=== PATIENT | male | born 1940 | race Caucasian/White ===

== ENCOUNTER → 2016-12-13 | Outpatient (CLI) | payer MEDICARE ==
[2016-12-13 08:52] LABS: CH 30.3; CHCM 34.4; HCT 42.3 % (39.0-53.0); HDW 2.53; HGB 14.1 gm/dL (13.0-17.5); MCH 29.4 pg (25.0-35.0); MCHC 33.2 g/dL (31.0-37.0); MCV 88.5 fL (80.0-100.0); Mean Platelet Volume 7.2; RBC 4.79 m/uL (4.30-5.90); RDW 13.5 % (11.5-15.5); WBC 6.2 k/uL (3.8-10.6)
[2016-12-13 09:05] LABS: Anion Gap 9 mmol/L; Blood Urea Nitrogen 14 mg/dL (9-20); Calcium 9.8 mg/dL (8.4-10.2); Carbon Dioxide 29 mmol/L (22-30); Chloride 103 mmol/L (98-107); Glucose 89 mg/dL (74-99); Non-African American GFR(MDRD) 59 (>60 ml/min/1.73 sqM); Potassium 4.6 mmol/L (3.5-5.1); Sodium 141 mmol/L (137-145)
== END | disposition home or self-care (01) ==
LOC: LABWHC1 08:11
PROVIDERS: ATTEND Internal Medicine Clinical Cardiac Electrophysiology
DX: I42.8 Other cardiomyopathies (principal); I10 Essential (primary) hypertension
CPT/HCPCS: 36415; 80048; 85027

== ENCOUNTER → 2016-12-20 | Day surgery (SDC) | payer MEDICARE ==
[2016-12-14 13:28] VITALS: BMI 25.8
[~2016-12-20] MED LIST: LIDOCAINE 1% INJ 10MG/ML (20 ML MDV) ONE; PROPOFOL 10 MG/ML 20 ML VIAL IV ONE; SODIUM CHLORIDE 0.9% 1,000 ML IV SCH
[2016-12-20 07:39] VITALS: RESP 16
[2016-12-20 08:30] VITALS: PULSE 54; TEMP 97.8
--- NOTE | 2016-12-20 08:56 | CE ---
CARDIAC ELECTROPHYSIOLOGY REPORT A 76-year-old male patient with known cardiomyopathy, status post Bi-V ICD who is brought in for DFT testing under anesthesia. The patient has a [employer] medical Bi-V ICD which was interrogated. The patient had complained that he had received a shock last week, however, interrogation revealed absence of any VF or tachycardia episodes. The ICD was interrogated. Atrial pacing threshold 0.5 V at 0.5 milliseconds. P waves 2.3 mV. Pacing impedance 440 ohms. RV threshold 0.5 V at 0.5 milliseconds. R-waves 11.7 mV and pacing impedance 610 ohms. LV threshold 1.5 V at 1 millisecond (M3-RV coil). Pacing impedance 980 ohms. High-voltage impedance 73 ohms. DFT testing was performed. A DC shock was used to induce ventricular fibrillation. This was adequately and appropriately detected at lead sensitivity and successfully internally defibrillated with 20 joule shock. A 10 joule shock was not successful. The total charge time was 4.1 seconds and shock impedance 73 ohms. No post shock noise. The device was then reprogrammed accordingly. Madit-RIT programming was reprogrammed. Base pacing rate of 50 beats per minute. Short AV delay. Bi-V pacing was already on. First cardioversion at 20 joules was defibrillation at 30 joules. RESULTS: 1. ICD interrogation with reprogramming revealed absence of any tachy episodes. The patient had complained of receiving a shock last week, but there was no tachyarrhythmia episode nor was any therapy delivered. 2. Increase in DFT. In 2014, his DFT was 10 joules. This time a 10 joule shock was unsuccessful. Reprogramming was performed accordingly and Madit-RIT was programed. PLAN: Follow up with Dr. Bullard in the next few weeks. MMODL / IJN: [id number] /
[2016-12-20 08:59] VITALS: BP 150/74
== END ==
LOC: CATHEP 06:26
PROVIDERS: ATTEND Internal Medicine Clinical Cardiac Electrophysiology
DX: Z45.02 Encounter for adjustment and management of automatic implantable cardiac defibrillator (principal); I42.8 Other cardiomyopathies; Z95.810 Presence of automatic (implantable) cardiac defibrillator; I10 Essential (primary) hypertension; E78.5 Hyperlipidemia, unspecified; I44.1 Atrioventricular block, second degree; I44.7 Left bundle-branch block, unspecified; I25.119 Atherosclerotic heart disease of native coronary artery with unspecified angina pectoris; E07.9 Disorder of thyroid, unspecified; K21.9 Gastro-esophageal reflux disease without esophagitis; H91.90 Unspecified hearing loss, unspecified ear; Z87.442 Personal history of urinary calculi; Z87.891 Personal history of nicotine dependence; Z79.899 Other long term (current) drug therapy; Z79.1 Long term (current) use of non-steroidal anti-inflammatories (NSAID); Z79.82 Long term (current) use of aspirin
CPT/HCPCS: 93642; J2001; J2704

== ENCOUNTER 2023-02-17 06:43 | Emergency (ER) | payer MEDICARE ==
[2023-02-17 06:47] VITALS: RESP 18; TEMP 98.1
--- NOTE | 2023-02-17 07:27 | CT ---
EXAMINATION TYPE: CT chest abdomen wo con CT DLP: 407.3 mGycm, Automated exposure control for dose reduction was used. DATE OF EXAM: 02/17/2023 7:17 AM COMPARISON: Chest radiograph 12/23/2014 CLINICAL INDICATION:Male, 82 years old with history of Esophageal food impaction; PHH, food impaction Technique: Multiple axial images of the chest and abdomen were obtained of the administration of intr avenous or oral contrast. Two-dimensional coronal and sagittal reconstructions were obtained. Findings: CHEST: Evaluation is limited due to lack of intravenous and oral contrast. LUNGS/ PLEURA: Mild centrilobular emphysematous changes. No focal consolidation, pleural effusion, or pneumothorax. Elevation of the right hemidiaphragm. AIRWAY: Patent and unremarkable.. HEART: Cardiomegaly is demonstrated. No pericardial effusion. Cardiac pacemaking leads. Aortic valvul ar calcifications. Mild coronary artery calcifications. MEDIASTINUM: No gross evidence of adenopathy. VASCULATURE: No aortic aneurysm. Left chest wall cardiac pacemaking device. Atherosclerotic calcific ation of the aorta and its branches. MUSCULOSKELETAL: No acute osseous abnormalities. SOFT TISSUES/LYMPH NODES: Unremarkable. LOWER NECK: No significant findings. ABDOMEN: ABDOMEN LIVER: Unremarkable GALLBLADDER AND BILE DUCTS: Unremarkable. PANCREAS: Unremarkable. SPLEEN: Unremarkable. ADRENAL GLANDS: Unremarkable. KIDNEYS AND URETERS: No evidence of hydronephrosis or renal calculus. STOMACH AND BOWEL: Fluid-filled mildly dilated esophagus to the mid esophageal level. Small hiatal he rnia. No significant colonic distention. Colonic diverticulosis without evidence for acute diverticul itis. The visualized appendix is within normal limits. No evidence of bowel obstruction. PERITONEUM: No evidence of pneumoperitoneum or free fluid. VASCULATURE: Mild atherosclerotic calcifications are present throughout the abdominal aorta and its b ranches. No abdominal aortic aneurysm. MUSCULOSKELETAL: No acute osseous abnormalities. Heterogenous sclerotic appearance of the left iliac bone. LYMPH NODES: No gross evidence for lymphadenopathy. SOFT TISSUE/ABDOMINAL WALL: Unremarkable IMPRESSION: 1. Mildly distended fluid-filled esophagus to the mid level with small hiatal hernia. Direct visuali zation is recommended. 2. Atherosclerotic appearance of the left iliac bone. This may represent Paget's disease. Consider f urther evaluation of the medicine bone scan. 3. Colonic diverticulosis without evidence for acute diverticulitis. 4. Mild COPD changes.
[2023-02-17] MEDS ORDERED: GLUCAGON 1 MG/ML VIAL IVP STA ×3 (07:32→09:24)
--- NOTE | 2023-02-17 07:49 | ED ---
ENT HPI - General Chief complaint: ENT Stated complaint: Acid Reflux, Unable to swallow Time Seen by Provider: 02/17/23 06:49 Source: patient, RN notes reviewed Mode of arrival: ambulatory Limitations: no limitations - History of Present Illness Initial comments: This is an 82-year-old male who presents to the emergency department for concerns of getting a meatball stuck in his throat. States that he had a meatball for dinner last night, and since then he has not been able to swallow anything, including his own saliva. Whenever he tries to swallow something, he throws it back up. He had a similar issue a few years ago and required the food to be removed with an endoscopy. He does report some spasms in his abdomen associated with this. MD complaint: difficulty swallowing - Related Data Home Medications Medication Instructions Recorded Confirmed Multivitamin [Men's Multi-Vitamin] 1 tab PO DAILY 06/14/14 02/17/23 lisinopriL [Zestril] 2.5 mg PO HS 09/17/14 02/17/23 Aspirin [Adult Low Dose Aspirin EC] 81 mg PO DAILY 12/14/16 02/17/23 Atorvastatin [Lipitor] 20 mg PO HS 02/17/23 02/17/23 Cholecalciferol [Vitamin D3 (125 125 mcg PO DAILY 02/17/23 02/17/23 Mcg = 5000 Iu)] Cyanocobalamin (Vitamin B-12) 5,000 mcg PO DAILY 02/17/23 02/17/23 [Vitamin B-12] Fish Oil/Dha/Epa [Fish Oil 1,200 1 cap PO DAILY 02/17/23 02/17/23 mg Fish Oil] Adell 3-6-9 1 cap PO DAILY 02/17/23 02/17/23 Omeprazole [PriLOSEC] 20 mg PO DAILY 02/17/23 02/17/23 Spironolactone [Aldactone] 12.5 mg PO DAILY 02/17/23 02/17/23 Vit C/E/Zn/Coppr/Lutein/Zeaxan 1 cap PO BID 02/17/23 02/17/23 [Preservision Areds 2 Softgel] carvediloL [Coreg] 3.125 mg PO DAILY 02/17/23 02/17/23 carvediloL [Coreg] 6.25 mg PO HS 02/17/23 02/17/23 Previous Rx's Medication Instructions Recorded Nitroglycerin Sl Tabs [Nitrostat] 0.4 mg SUBLINGUAL Q5M PRN #25 tab 06/15/14 Allergies Allergy/AdvReac Type Severity Reaction Status Date / Time No Known Allergies Allergy Verified 02/17/23 09:35 Review of Systems ROS Statement: Those systems with pertinent positive or pertinent negative responses have been documented in the HPI. ROS Other: All systems not noted in ROS Statement are negative. Past Medical History Past Medical History: Coronary Artery Disease (CAD), Cancer, Chest Pain / Angina, GERD/Reflux, Hearing Disorder / Deafness Additional Past Medical History / Comment(s): BASAL CELL ON FACE. HX Kidney Stones. History of Any Multi-Drug Resistant Organisms: None Reported Past Surgical History: Orthopedic Surgery, Prostate Surgery Additional Past Surgical History / Comment(s): Kidney Stone Removal. KNEE SCOPE SURG. Past Anesthesia/Blood Transfusion Reactions: No Reported Reaction Past Psychological History: No Psychological Hx Reported Smoking Status: Never smoker Past Alcohol Use History: None Reported Past Drug Use History: None Reported - Past Family History Father Family Medical History: Dementia Additional Family Medical History / Comment(s): alzheimers; at 92 Mother Family Medical History: No Reported History Additional Family Medical History / Comment(s): arthritis General Exam Limitations: no limitations General appearance: alert, in no apparent distress Head exam: Present: atraumatic, normocephalic, normal inspection Respiratory exam: Present: normal lung sounds bilaterally. Absent: respiratory distress, wheezes, rales, rhonchi, stridor Cardiovascular Exam: Present: regular rate, normal rhythm, normal heart sounds. Absent: systolic murmur, diastolic murmur, rubs, gallop, clicks GI/Abdominal exam: Present: soft, normal bowel sounds. Absent: distended, tenderness, guarding, rebound, rigid Neurological exam: Present: alert, oriented X3, CN II-XII intact Psychiatric exam: Present: normal affect, normal mood Skin exam: Present: warm, dry, intact, normal color. Absent: rash Course Vital Signs 02/17/23 02/17/23 02/17/23 06:45 07:47 07:59 Temperature 98.1 F Pulse Rate 80 65 105 H Respiratory 18 18 18 Rate Blood Pressure 159/68 122/80 160/98 O2 Sat by Pulse 98 96 95 Oximetry 02/17/23 02/17/23 02/17/23 08:25 09:22 09:51 Temperature Pulse Rate 78 75 72 Respiratory 18 18 18 Rate Blood Pressure 137/78 140/75 122/69 O2 Sat by Pulse 97 98 95 Oximetry 02/17/23 02/17/23 10:38 11:21 Temperature Pulse Rate 75 71 Respiratory 18 18 Rate Blood Pressure 103/63 106/64 O2 Sat by Pulse 97 96 Oximetry Medical Decision Making - Medical Decision Making This is an 82-year-old male who presents to the emergency department for concerns of an esophageal food impaction. Was pt. sent in by a medical professional or institution? @ -No Did you speak to anyone other than the patient for history? @ -No Did you review nursing and triage notes? @ -Yes, and I agree, it is accurate with regards to the patient's symptoms. Were old charts reviewed? @ -No Differential Diagnosis? @ -Differential Dysphagia: Food impaction, GERD, mass, neurological issue, this is not meant to be an all- inclusive list. EKG interpreted by me (3pts min.)? @ -Not obtained X-rays interpreted by me (1pt min.)? @ -Not obtained CT interpreted by me (1pt min.)? @ -CT scan of the chest and abdomen obtained. My interpretation identifies a distended fluid filled esophagus. U/S interpreted by me (1pt. min.)? @ -Not obtained What testing was considered but not performed? (CT, X-rays, U/S, labs)? Why? @ -None What meds were considered but not given? Why? @ -None Did you discuss the management of the patient with other professionals? @ -No Did you reconcile home meds? @ -No Was smoking cessation discussed for >3mins.? @ -No Was critical care preformed (if so, how long)? @ -No Were there social determinants of health that impacted care today? How? (Homelessness, low income, unemployed, alcoholism, drug addiction, stokes sportation, low edu. Level, literacy, decrease access to med. care, long-term, rehab)? @ -No Was there de-escalation of care discussed even if they declined? (Discuss DNR or withdrawal of care, Hospice)? @ -No What co-morbidities impacted this encounter? (DM, HTN, Smoking, COPD, CAD, Cancer, CVA, Hep., AIDS, mental health diagnosis, sleep apnea, morbid obesity)? @ -None Was patient admitted / discharged? @ -Discharged. CT scan of the chest and abdomen obtained demonstrating a mildly distended fluid-filled esophagus to the mid-level with a small hiatal hernia. We did a trial of Valium and glucagon, followed by consumption of a carbonated beverage. He had no relief in symptoms. We repeated this regimen, and again the patient had no relief in symptoms and he was unable to tolerate oral intake. We then tried Glucagon with Reglan and Nitroglycerin followed by consumption of a carbonated beverage. The patient was able to successfully swallow fluids without throwing them back up. He was complaining of some problems with reflux and excess gas. He was then given famotidine and Maalox, which he felt was very beneficial. At that time he was tolerating oral intake without difficulty and felt stable for discharge home. Information for GI follow-up provided. He is advised to contact them for a follow-up appointment and further evaluation due to the possibility of an esophageal stricture. Advised he continue with [id number] reflux medication as needed and to make sure that he thoroughly chews his food in the future. Undiagnosed new problem with uncertain prognosis? @ -None Drug Therapy requiring intensive monitoring for toxicity (Heparin, Nitro, Insulin, Cardizem)? @ -None Were any procedures done? @ -None Diagnosis/symptom? @ -Esophageal food impaction Acute, or Chronic, or Acute on Chronic? @ -Acute Uncomplicated (without systemic symptoms) or Complicated (systemic symptoms)? @ -Complicated Side effects of treatment? @ -None Exacerbation, Progression, or Severe Exacerbation] @ -Not applicable Poses a threat to life or bodily function? @ -Not at this time, symptoms have resolved. Return precautions reviewed in depth, the patient is instructed to return to the emergency department with any new, worsening, or concerning symptoms. Patient verbalized understanding. This case was discussed in detail with the attending ED physician, Dr. Barrios. Presentation, findings, and treatment plan discussed in detail as well. - Radiology Data Radiology results: report reviewed, image reviewed Disposition Clinical Impression: Esophageal obstruction due to food impaction Disposition: HOME SELF-CARE Instructions (If sedation given, give patient instructions): Food Impaction (ED) Additional Instructions: Return to the emergency department with any new, worsening, or concerning symptoms. You can continue to take [id number] reflux medication as needed. Contact GI as listed below for a follow up appointment and reevaluation. Follow up with your primary care provider in 1-2 days. Is patient prescribed a controlled substance at d/c from ED?: No Referrals: Shukri Cochran MD [Primary Care Provider] - 1-2 days Sarah House MD [STAFF PHYSICIAN] - 1-2 days
[2023-02-17] MEDS ORDERED: NITROGLYCERIN SL TABS 0.4 MG TAB SUBLINGUAL STA (09:24)
[2023-02-17] MEDS ORDERED: METOCLOPRAMIDE 5 MG/ML 2 ML VIAL IVP STA (09:24)
[2023-02-17] MEDS ORDERED: FAMOTIDINE 20 MG/2 ML VIAL IV STA (10:38)
[2023-02-17] MEDS ORDERED: MAG HYDROX/AL HYDROX/SIMETH 30 ML CUP PO PRN (10:38)
[2023-02-17] MEDS ORDERED: ONDANSETRON 4 MG/2 ML VIAL IVP STA (10:39)
[2023-02-17 11:41] VITALS: BP 106/64; PULSE 71
== END 2023-02-17 12:18 | disposition home or self-care (01) ==
LOC: EC 06:43
DX: K22.2 Esophageal obstruction (principal); I25.10 Atherosclerotic heart disease of native coronary artery without angina pectoris; K21.9 Gastro-esophageal reflux disease without esophagitis; Z79.82 Long term (current) use of aspirin; Z79.899 Other long term (current) drug therapy
CPT/HCPCS: 71250; 74150; 99284; 96374; 96375 ×4; 96376 ×3; J1610; J2765; J3360; J2405; J3490

== ENCOUNTER 2023-05-03 09:36 | Day surgery (SDC) | payer MEDICARE ==
[~2023-05-03 09:36] MED LIST changes: +HYDROmorphone 0.5 MG/0.5 ML SYRINGE IVP PRN; +LACTATED RINGERS 1,000 ML IV SCH; -LIDOCAINE 1% INJ 10MG/ML (20 ML MDV) ONE; -PROPOFOL 10 MG/ML 20 ML VIAL IV ONE; -SODIUM CHLORIDE 0.9% 1,000 ML IV SCH
[2023-05-03 10:45] VITALS: TEMP 97.2
[2023-05-03] MEDS ORDERED: LIDOCAINE 1% INJ 10MG/ML (20 ML MDV) ONE (11:18)
[2023-05-03] MEDS ORDERED: PROPOFOL 10 MG/ML 20 ML VIAL IV ONE (11:18)
--- NOTE | 2023-05-03 11:30 | P.PCN ---
Date of Procedure: 05/03/23 Procedure(s) Performed: BRIEF HISTORY: Patient is a 82-year-old, pleasant, white male scheduled for an upper endoscopy as a part of evaluation of intermittent dysphagia to solids for the last 7 years duration. He had 2 episodes of acute food impaction requiring EGD in the past.. PROCEDURE PERFORMED: Esophagogastroduodenoscopy with dilation. PREOPERATIVE DIAGNOSIS: Intermittent dysphagia to solids for several years duration. IV sedation per anesthesia. PROCEDURE: After informed consent was obtained, the patient was brought into the endoscopy unit. IV sedation was administered by Anesthesia under continuous monitoring. Initially the Olympus GIF-140 video endoscope was inserted into the mouth. Esophagus intubated without any difficulty. It was gradually advanced into the stomach and duodenum and carefully examined. The bulb and the second part of the duodenum appeared normal. The scope at this time was withdrawn to the stomach, adequately insufflated with air, and upon careful examination, mucosa of the antrum, body, cardia and the fundus appeared normal. The scope was then withdrawn into the esophagus. Small hiatal hernia noted. The GE junction was located at 39 cm from the incisors. The distal esophagus which are identified and this was dilated using 18 mm TTS balloon for 30 seconds. There was some oozing identified the site of dilation and hence further dilation was not performed. The rest of the esophagus appeared normal. There were no erosions or ulcerations seen and the patient tolerated the procedure well. IMPRESSION: 1. Distal esophageal stricture status post balloon dilation using 18 mm TTS balloon. 2. Small hiatal hernia. RECOMMENDATIONS: The findings of this examination were discussed with the patient as well as his family.. He was advised to be on a clear liquid diet for 2 hours. Continue with omeprazole 20 mg daily and follow antireflux measures. Follow up in office if he has any worsening symptoms.
[2023-05-03 12:01] VITALS: RESP 16
[2023-05-03 12:26] VITALS: BP 131/65; PULSE 58
== END 2023-05-03 12:13 | disposition home or self-care (01) ==
LOC: ORWHC2ENDO 09:36
PROVIDERS: ATTEND Internal Medicine Gastroenterology
DX: K22.2 Esophageal obstruction (principal); K44.9 Diaphragmatic hernia without obstruction or gangrene; I25.10 Atherosclerotic heart disease of native coronary artery without angina pectoris; I48.91 Unspecified atrial fibrillation; Z79.899 Other long term (current) drug therapy
CPT/HCPCS: 43249; J2001; J2704; C1726

== ENCOUNTER 2023-07-27 12:16 | Day surgery (SDC) | payer MEDICARE ==
[2023-07-25 16:04] VITALS: BMI 26.6
[~2023-07-27 12:16] MED LIST changes: -HYDROmorphone 0.5 MG/0.5 ML SYRINGE IVP PRN; -LACTATED RINGERS 1,000 ML IV SCH; +ceFAZolin 1 GM in SODIUM CHLORIDE 0.9% IRRIG BTL 250 ML IRRIGATION PRN; +fentaNYL (PF) 50 MCG/ML 2 ML AMP IV PRN
[2023-07-27] MEDS: SODIUM CHLORIDE 0.9% 1,000 ML IV ONE (12:37)
[2023-07-27] MEDS: carvediloL 6.25 MG TAB PO STA (12:56)
[2023-07-27 13:11] LABS: ALT 18 U/L (4-49); AST 28 U/L (17-59); African American GFR (CKD) 70 (>60 ml/min/1.73 sqM); Albumin 4.4 g/dL (3.5-5.0); Alkaline Phosphatase 93 U/L (38-126); Anion Gap 6 mmol/L; Blood Urea Nitrogen 14 mg/dL (9-20); Calcium 9.6 mg/dL (8.4-10.2); Carbon Dioxide 28 mmol/L (22-30); Chloride 108 mmol/L (98-107); Glucose 95 mg/dL (74-99); Non-African American GFR(CKD) 61 (>60 ml/min/1.73 sqM); Potassium 4.4 mmol/L (3.5-5.1); Sodium 142 mmol/L (137-145); Total Bilirubin 1.5 mg/dL (0.2-1.3); Total Protein 7.6 g/dL (6.3-8.2)
[2023-07-27] MEDS ORDERED: PHENYLEPHRINE-0.9% NACL SYG 1,000 MCG/10 ML SYRINGE ONE (14:29)
[2023-07-27] MEDS ORDERED: PROPOFOL 10 MG/ML 20 ML VIAL IV ONE (14:29)
[2023-07-27] MEDS ORDERED: fentaNYL (PF) 50 MCG/ML 2 ML AMP ONE (14:29)
[2023-07-27] MEDS ORDERED: MIDAZOLAM 2 MG/2 ML VIAL ONE (14:29)
[2023-07-27] MEDS ORDERED: LIDOCAINE 1% INJ 10MG/ML (20 ML MDV) ONE (14:53)
[2023-07-27] MEDS: LIDOCAINE 1% INJ 10MG/ML (20 ML MDV) SQ ONE (15:17)
[2023-07-27] MEDS ORDERED: ACETAMINOPHEN TAB 325 MG TAB PO PRN (16:48)
--- NOTE | 2023-07-27 17:03 | P.EPPROC ---
- EP Procedure Note Electrophysiology Procedure Note: Diagnosis Cardiomyopathy, chronic, nonischemic Congestive heart failure [place] [employer] class 2 Underlying wide QRS of a left bundle branch block type On guide line directed medical treatment for greater than 3 months Patient has a biventricular ICD that was implanted for severe cardiomyopathy ejection fraction 30% Improvement in LV systolic function with BiV pacing and medical therapy Device at [facility] awaiting generator change Procedure: Biventricular ICD generator change Result: Successful biventricular ICD generator change Chronic atrial lead: Pacing threshold 0.5 V at point 5 ms, P waves 1.6 mV and pacing impedance 450 ohms RV ICD lead: Pacing threshold 0.9 V at point 5 ms, R waves 10 mV and pacing impedance of 560 ohms Left ventricular lead: Pacing threshold 1.25 V at 1 ms, M3-RV coil, pacing impedance 440 ohms High-voltage impedance 73 ohms RV-can Procedure details: Patient was brought to the EP lab in a fasting state. Written informed consent was obtained prior to the procedure. Options, pros and cons, benefits and risks and complications discussed with patient in detail prior to the procedure (shared decision making) previously. Importance of continuing medical treatment emphasized previously. Alternatives discussed previously. [place] document given Cinefluoroscopy of the leads showed atrial, RV and LV leads in stable position no fractures or breaks The left pectoral area was prepped and draped as a protocol. IV antibiotics administered 1% lidocaine was used for local anesthesia. A 4 cm incision was made parallel to the deltopectoral groove, about 1.5 cm medial to it. The incision was carried down to the level of the pectoralis muscle and the capsule was opened, chronic biventricular ICD device explanted. Hemostasis was assured. Partial capsulectomy performed Leads interrogated New generator implanted New biventricular ICD generator is a [place] heart failure [employer]-D device, [place] irrigated with antibiotic solution. Antibiotic pouch placed Leads connected to the biventricular ICD generator. Wound closed in 3 layers and dressed per protocol Biventricular ICD interrogated and programmed. Appropriate pacing parameters, antitachycardia therapies with antitachycardia pacing cardioversion defibrillations programmed. AV delay and biventricular pacing parameters programmed to achieve optimal physiologic pacing Patient tolerated the procedure well without any acute complications. See scanned device report in EMR for lead details DFT testing performed Ventricular fibrillation induced Significant number of dropouts noted at least sensitivity, 1 mV However a 10 J shock in the cath hold configuration was successful in defibrillating the patient Charge time 1.8 seconds High-voltage impedance 70 ohms Therefore defibrillation level testing was reperformed at a sensitivity of 0.7 mV Once again a 10 J shock was successful, charge time 1.8 seconds, high-voltage impedance 73 ohms Occasional dropouts noted The sensitivity was programmed to normal at 0.3 mV
[2023-07-27] MEDS: SODIUM CHLORIDE 0.9% 1,000 ML IV SCH (17:48)
[2023-07-27] MEDS: LACTATED RINGERS 1,000 ML IV SCH (17:48)
[2023-07-27] MEDS: ACETAMINOPHEN IV (For NPO) 1,000 MG in EMPTY BAG 1 BAG IVPB ONE (18:44)
[2023-07-27] MEDS: carvediloL 3.125 MG TAB PO SCH (20:07)
[2023-07-27] MEDS: ATORVASTATIN 20 MG TAB PO SCH (20:07)
[2023-07-27 22:35] VITALS: BP 119/77; PULSE 51; RESP 18; TEMP 97.8
[2023-07-28] MEDS ORDERED: carvediloL 6.25 MG TAB PO SCH (09:00)
[2023-07-28] MEDS ORDERED: ASPIRIN 81 MG PO SCH (09:00)
[2023-07-28] MEDS ORDERED: SPIRONOLACTONE 25 MG TAB PO SCH (09:00)
== END 2023-07-27 21:05 | disposition home or self-care (01) ==
LOC: CATHEP 12:16 → 6NMEDSUR 15:58 → CATHEP 21:05
PROVIDERS: ATTEND Internal Medicine Clinical Cardiac Electrophysiology
DX: Z45.02 Encounter for adjustment and management of automatic implantable cardiac defibrillator (principal); I42.8 Other cardiomyopathies; I44.7 Left bundle-branch block, unspecified; I11.0 Hypertensive heart disease with heart failure; I50.9 Heart failure, unspecified; E78.5 Hyperlipidemia, unspecified; F17.210 Nicotine dependence, cigarettes, uncomplicated; Z79.82 Long term (current) use of aspirin; Z95.810 Presence of automatic (implantable) cardiac defibrillator; Z79.899 Other long term (current) drug therapy
CPT/HCPCS: 33249; 80053; C1882; J2250; J0690; J2001; J3010; J2704; J2371; 33264